=== PATIENT | female | born 1980 | race American Indian/Alaskan Native ===

== ENCOUNTER 2018-12-01 15:04 | Emergency (ER) | payer OTHER ==
--- NOTE | 2018-12-01 15:24 | Emergency Department Report ---
Blank Doc - Documentation Documentation: This is a 38-year-old female that presents with left arm tingling and numbness sensation. Denies any SOB or CP. This initial assessment/diagnostic orders/clinical plan/treatment(s) is/are subject to change based on patient's health status, clinical progression and re-assessment by fellow clinical providers in the ED. Further treatment and workup at subsequent clinical providers discretion. Patient/guardians urged not to elope from the ED as their condition may be serious if not clinically assessed and managed. Initial orders include: 1- Patient sent to [facility] for further evaluation and treatment 2- XR cervical spine
--- NOTE | 2018-12-01 16:15 | XRay Report ---
CERVICAL SPINE, 4 VIEWS INDICATION: left arm tingling. COMPARISON: None. IMPRESSION: Normal alignment. Mild disc space narrowing is identified at C5-6. The remaining levels are within normal limits. Normal facet joints. No acute osseous or soft tissue abnormality. Signer Name: Ned Calvillo Jr, MD Signed: 12/01/2018 4:11 PM Workstation Name: [id number]
[2018-12-01 18:47] VITALS: BP 122/83
[2018-12-01] MEDS ORDERED: NACL 0.9% 1000 ML 1,000 ML IV ONE (19:39)
[2018-12-01 19:53] LABS: Basophils # (Auto) 0.1 K/mm3 (0.0-0.1); Eosinophils # (Auto) 0.1 K/mm3 (0.0-0.4); Eosinophils % (Auto) 0.8 % (0.0-4.3); Hematocrit 30.2 % (30.3-42.9); Hemoglobin 9.5 gm/dl (10.1-14.3); Lymphocytes % (Auto) 31.7 % (13.4-35.0); Mean Corpuscular HGB Conc 31 % (30-34); Mean Corpuscular Volume 77 fl (79-97); Monocytes # (Auto) 0.4 K/mm3 (0.0-0.8); Monocytes % (Auto) 6.8 % (0.0-7.3); Platelet Count 398 K/mm3 (140-440); Red Blood Count 3.92 M/mm3 (3.65-5.03); Red Cell Distribution Width 17.9 % (13.2-15.2)
[2018-12-01 20:23] LABS: Alanine Aminotransferase 11 units/L (7-56); Albumin 4.3 g/dL (3.9-5); BUN/Creatinine Ratio 10; Blood Urea Nitrogen 7 mg/dL (7-17); Calcium 9.3 mg/dL (8.4-10.2); Hemolysis Index 3
[2018-12-01 21:28] LABS: Bacteria,Urine 1+ /HPF (Negative); Bilirubin,Urine NEG (Negative); Blood,Urine NEG (Negative); Color,Urine Yellow (Yellow); Mucus,Urine 1+ /HPF; Protein,Urine <15 mg/dL mg/dL (Negative); Urobilinogen,Urine < 2.0 mg/dL (<2.0)
[2018-12-01 21:29] LABS: HCG Qualitative,Urine Negative (Negative)
--- NOTE | 2018-12-01 22:42 | XRay Report ---
CHEST 2 VIEWS INDICATION: chest pain. COMPARISON: None. FINDINGS: Support devices: None. Heart: Within normal limits. Lungs/Pleura: No acute air space or interstitial disease. No significant pleural effusion. IMPRESSION: No acute findings. Signer Name: Marc Head MD Signed: 12/01/2018 10:37 PM Workstation Name: [id number]
--- NOTE | 2018-12-02 | Emergency Department Report ---
ED General Adult HPI - General Chief complaint: Extremity Problem,Nontraumatic Stated complaint: LFT ARM TINGLE/BASHIR/WEAK Time Seen by Provider: 12/01/18 15:23 Source: patient Mode of arrival: Ambulatory Limitations: No Limitations - History of Present Illness Initial comments: Patient is a 38-year-old -[place] female with no past medical history of present the ED with common of acute onset persistent diffuse body aches and pains, diffuse bilateral tingling sensations, chest pain, shortness of breath, headache, nausea and generalized fatigue for the last 24 hours. Patient states that these symptoms have been persistent and intermittent. Patient denies dizziness, fever, chills, nausea, vomiting, headache, vision changes, syncope, vaginal bleeding or abdominal pain MD Complaint: dyspnea, diffuse body aches and pain, tingling sensations -: Sudden, hour(s) (24) Location: head, chest Radiation: non-radiation Severity scale (0 -10): 4 Quality: aching, dull Consistency: intermittent Improves with: none Worsens with: none Associated Symptoms: denies other symptoms, headaches, loss of appetite, malaise, shortness of breath. denies: confusion, chest pain, cough, diaphoresis, fever/chills, nausea/vomiting, rash, seizure, syncope, weakness, other Treatments Prior to Arrival: none - Related Data Previous Rx's Medication Instructions Recorded Last Taken Type Cyclobenzaprine [Flexeril] 10 mg PO Q8H PRN #15 tablet 12/02/18 Unknown Rx Ibuprofen [Motrin] 600 mg PO Q8H PRN #20 tablet 12/02/18 Unknown Rx hydrOXYzine PAMOATE [Vistaril] 25 mg PO Q6HR PRN #30 capsule 12/02/18 Unknown Rx Allergies Allergy/AdvReac Type Severity Reaction Status Date / Time Sulfa (Sulfonamide Allergy Anaphylaxis Verified 12/01/18 15:09 Antibiotics) ED Review of Systems ROS: Stated complaint: LFT ARM TINGLE/BASHIR/WEAK Other details as noted in HPI Constitutional: malaise, weakness. denies: chills, fever Eyes: denies: eye pain, eye discharge, vision change ENT: denies: ear pain, throat pain Respiratory: cough, shortness of breath. denies: wheezing Cardiovascular: chest pain. denies: palpitations, dyspnea on exertion, syncope Endocrine: no symptoms reported Gastrointestinal: denies: abdominal pain, nausea, vomiting, diarrhea Genitourinary: denies: urgency, dysuria, discharge Musculoskeletal: back pain, arthralgia, myalgia. denies: joint swelling Skin: denies: rash, lesions Neurological: headache. denies: weakness, paresthesias Psychiatric: anxiety. denies: depression, auditory hallucinations, visual hallucinations, homicidal thoughts, suicidal thoughts Hematological/Lymphatic: denies: easy bleeding, easy bruising ED Past Medical Hx - Past Medical History Previous Medical History?: No - Surgical History Past Surgical History?: No - Social History Smoking Status: Current Some Day Smoker Substance Use Type: Alcohol - Medications Home Medications: Home Medications Medication Instructions Recorded Confirmed Last Taken Type Cyclobenzaprine [Flexeril] 10 mg PO Q8H PRN #15 tablet 12/02/18 Unknown Rx Ibuprofen [Motrin] 600 mg PO Q8H PRN #20 tablet 12/02/18 Unknown Rx hydrOXYzine PAMOATE [Vistaril] 25 mg PO Q6HR PRN #30 capsule 12/02/18 Unknown Rx ED Physical Exam - General Limitations: No Limitations General appearance: alert, in no apparent distress - Head Head exam: Present: atraumatic, normocephalic, normal inspection - Eye Eye exam: Present: normal appearance, PERRL, EOMI Pupils: Present: normal accommodation - ENT ENT exam: Present: normal exam, normal orophraynx, mucous membranes moist, TM's normal bilaterally, normal external ear exam - Neck Neck exam: Present: normal inspection, full ROM. Absent: tenderness - Respiratory Respiratory exam: Present: normal lung sounds bilaterally. Absent: respiratory distress, wheezes, rhonchi, stridor, chest wall tenderness, accessory muscle use, decreased breath sounds - Cardiovascular Cardiovascular Exam: Present: regular rate, normal rhythm, normal heart sounds. Absent: systolic murmur, diastolic murmur, rubs, gallop - GI/Abdominal GI/Abdominal exam: Present: soft, normal bowel sounds. Absent: tenderness, guarding, hyperactive bowel sounds, hypoactive bowel sounds, organomegaly - Extremities Exam Extremities exam: Present: normal inspection, full ROM, normal capillary refill - Back Exam Back exam: Present: normal inspection, full ROM. Absent: tenderness, CVA tenderness (L), muscle spasm, paraspinal tenderness, vertebral tenderness - Neurological Exam Neurological exam: Present: alert, oriented X3, CN II-XII intact, normal gait, reflexes normal - Psychiatric Psychiatric exam: Present: normal affect, normal mood, anxious - Skin Skin exam: Present: warm, dry, intact, normal color. Absent: rash ED Course Vital Signs 12/01/18 12/01/18 15:23 18:34 Temperature 98.2 F 98.3 F Pulse Rate 74 78 Respiratory 20 16 Rate Blood Pressure 128/78 122/83 O2 Sat by Pulse 100 100 Oximetry - Reevaluation(s) Reevaluation #1: 12/01/18 23:59 This is a 38-year-old female with no past medical history who presented to the ED with the diffuse body aches and pains, tingling sensations, lightheadedness, chest pain and shortness of breath with headache. In the ED, patient is alert and oriented 3 and is not in distress with normal vital signs. Chest x-ray shows no acute cardiopulmonary abnormalities. The EKG shows normal sinus rhythm with a ventricular rate of [address] or T-wave abnormalities, or pathological Q waves. Lab test results are reviewed and are all unremarkable and nonactionable. Patient was discharged home on anxiety medication and advised to follow-up with her primary care physician in 7-10 days for reevaluation or return to the ED immediately if symptoms get worse. 12/02/18 00:06 ED Medical Decision Making - Lab Data Result diagrams: 12/01/18 19:44 12/01/18 19:44 - EKG Data Rate: normal - EKG Data Interpretation: normal EKG 12/02/18 00:07 Normal sinus rhythm, ventricular rate of 69 bpm; no ST or T-wave abnormalities or pathological Q waves. - Radiology Data Radiology results: report reviewed, image reviewed Chest x-ray shows no acute cardiopulmonary abnormalities. - Medical Decision Making This is a 38-year-old female with no past medical history who presented to the ED with the diffuse body aches and pains, tingling sensations, lightheadedness, chest pain and shortness of breath with headache. In the ED, patient is alert and oriented 3 and is not in distress with normal vital signs. Chest x-ray shows no acute cardiopulmonary abnormalities. Lab test results are reviewed and are all unremarkable and nonactionable. Patient was discharged home on anxiety medication and advised to follow-up with her primary care physician in 7-10 days for reevaluation or return to the ED immediately if symptoms get worse. - Differential Diagnosis Anxiety; nonspecific chest pain, lightheadedness; muscle spasms Critical care attestation.: If time is entered above; I have spent that time in minutes in the direct care of this critically ill patient, excluding procedure time. ED Disposition Clinical Impression: Anxiety as acute reaction to exceptional stress, Nonspecific chest pain, Muscle spasm Disposition: TO HOME OR SELFCARE Is pt being admited?: No Does the pt Need Aspirin: No Condition: Stable Instructions: Chest Pain (ED), Generalized Anxiety Disorder (ED), Muscle Spasm (ED) Additional Instructions: Take medication with food, drink plenty of fluids and follow-up with the primary care physician in 7-10 days for reevaluation. Return to the ED immediately if symptoms get worse. Prescriptions: Cyclobenzaprine [Flexeril] 10 mg PO Q8H PRN #15 tablet PRN Reason: Muscle Spasm Ibuprofen [Motrin] 600 mg PO Q8H PRN #20 tablet PRN Reason: Pain hydrOXYzine PAMOATE [Vistaril] 25 mg PO Q6HR PRN #30 capsule PRN Reason: Anxiety Referrals: PRIMARY CARE, [Primary Care Provider] - 3-5 Days Time of Disposition: 00:03 Print Language: PASHTO
== END 2018-12-02 00:37 | disposition home or self-care (01) ==
LOC: ED 15:04
DX: F41.9 Anxiety disorder, unspecified (principal); R07.89 Other chest pain; M62.838 Other muscle spasm; R20.2 Paresthesia of skin; R42 Dizziness and giddiness; R06.02 Shortness of breath; R51 Headache; F17.200 Nicotine dependence, unspecified, uncomplicated; Z79.899 Other long term (current) drug therapy; Z88.2 Allergy status to sulfonamides
CPT/HCPCS: 36415; 71046; 72040; 80053; 81001; 81025; 84484; 85025; 93005; 93010; 96360; 99284; J7030